=== PATIENT | female | born 1960 ===

== ENCOUNTER 2017-11-06 08:30 | Emergency (ER) | payer SELFPAY ==
[2017-11-06 08:48] VITALS: O2SAT 99
--- NOTE | 2017-11-06 10:15 | RAD ---
PROCEDURE: Lumbar spine dated 11/06/17 HISTORY: Back pain COMPARISON: No prior. FINDINGS: BONES: No acute compression fracture nor the all the vertebral bodies with normal stature. Vertebral bodies and facets normally aligned. DISC SPACES: Mild multilevel degenerative spondylosis. Changes include mild posterior disc space narrowing, endplate eburnation as well as small anterolateral and tiny posterior osteophyte formation. Facets also hypertrophic L5-S1 through the L2-L3 levels in decreasing order of severity OTHER FINDINGS: None. IMPRESSION: No acute fractures. Mild multilevel degenerative spondylosis.
--- NOTE | 2017-11-06 10:40 | C.PDOC ---
History Of Present Illness 56 y/o female presents to the ER complaining of left-sided paraspinal back pain x weeks. Patient states that the pain radiates into the legs and worse with movement. Patient denies having fever, vomiting, weakness, numbness, tingling, and trauma. Denies dysuria. Time Seen by Provider: 11/06/17 09:12 Chief Complaint (Nursing): Back Pain History Per: Patient History/Exam Limitations: no limitations Onset/Duration Of Symptoms: Days Current Symptoms Are (Timing): Still Present Severity: Moderate Exacerbating Factor(s): Movement Past Medical History Reviewed: Historical Data, Nursing Documentation, Vital Signs Vital Signs: Last Vital Signs Temp 98.1 F 11/06/17 11:52 Pulse 66 11/06/17 11:52 Resp 14 11/06/17 11:52 BP 133/82 11/06/17 11:52 Pulse Ox 99 11/06/17 11:52 - Medical History PMH: Arthritis Surgical History: Appendectomy Family History: States: No Known Family Hx - Social History Hx Alcohol Use: No Hx Substance Use: No - Immunization History Hx Tetanus Toxoid Vaccination: No Hx Influenza Vaccination: No Hx Pneumococcal Vaccination: No Review Of Systems Constitutional: Negative for: Fever, Chills Gastrointestinal: Negative for: Nausea, Vomiting, Abdominal Pain, Diarrhea Genitourinary: Negative for: Dysuria, Hematuria Musculoskeletal: Positive for: Back Pain (left-sided paraspinal back pain) Neurological: Negative for: Weakness, Numbness Physical Exam - Physical Exam Appears: Non-toxic, No Acute Distress, Other (awake,alert, orientedx3) Skin: Normal Color, Warm Head: Atraumatic, Normacephalic Eye(s): bilateral: Normal Inspection Cardiovascular: Rhythm Regular Respiratory: Normal Breath Sounds, No Rales, No Rhonchi, No Wheezing Gastrointestinal/Abdominal: Normal Exam, Soft, No Tenderness Back: No Vertebral Tenderness, Paraspinal Tenderness (left-sided paralumbar tenderness), Straight Leg Raising ((+) straight leg raising) Extremity: Normal ROM, Tenderness (tenderness to left gluteal region) Neurological/Psych: Oriented x3, Normal Speech ED Course And Treatment O2 Sat by Pulse Oximetry: 99 (RA) Pulse Ox Interpretation: Normal - Other Rad X-Ray- Lumbar Spine X-Ray: Viewed By Me, Read By Radiologist Interpretation: PROCEDURE: Lumbar spine dated 11/06/17. HISTORY: Back pain. COMPARISON: No prior. FINDINGS: BONES: No acute compression fracture nor the all the vertebral bodies with normal stature. Vertebral bodies and facets normally aligned. DISC SPACES: Mild multilevel degenerative spondylosis. Changes include mild posterior disc space narrowing, endplate eburnation as well as small anterolateral and tiny posterior osteophyte formation. Facets also hypertrophic L5-S1 through the L2-L3 levels in decreasing order of severity. OTHER FINDINGS: None. IMPRESSION: No acute fractures. Mild multilevel degenerative spondylosis. Progress Note: B-Sut-Jitcqt Spine ordered. Patient given Valium PO and Toradol IM. Xrays negative. On reevaluation, patient feels better. She is ambulating around the ED with no weakness, numbness or tingling. Disposition - Disposition Referrals: [facility] at [facility] [Outside] Disposition: HOME/ ROUTINE Disposition Time: 11:41 Condition: GOOD Additional Instructions: Follow-up with PMD within 2 days. Return to ED if condition worsens. Motrin and flexeril for pain. Prescriptions: Cyclobenzaprine [Flexeril] 5 mg PO TID #14 tab Instructions: Sciatica, Low Back Pain in Adults Forms: Gen Discharge Inst Central African, boolino (Arabic), boolino (Central African), Work Excuse Print Language: SAMI - Clinical Impression Clinical Impression: Low back strain, Lumbar sprain - Scribe Statement The provider has reviewed the documentation as recorded by the Mary Dolan Provider Attestation: All medical record entries made by the Mary were at my direction and personally dictated by me. I have reviewed the chart and agree that the record accurately reflects my personal performance of the history, physical exam, medical decision making, and the department course for this patient. I have also personally directed, reviewed, and agree with the discharge instructions and disposition.
[2017-11-06 11:53] VITALS: BP 133/82; PULSE 66; RESP 14; TEMP 98.1
== END 2017-11-06 12:04 | disposition home or self-care (01) ==
LOC: C.ER 08:30
DX: S39.012A Strain of muscle, fascia and tendon of lower back, initial encounter (principal); S33.5XXA Sprain of ligaments of lumbar spine, initial encounter; X58.XXXA Exposure to other specified factors, initial encounter; Y92.9 Unspecified place or not applicable
CPT/HCPCS: 72100; 96372; 99283; J1885